=== PATIENT | male | born 1970 | race Two or more races ===

== ENCOUNTER 2017-01-21 13:55 | Emergency (ER) | payer OTHER ==
--- NOTE | 2017-01-21 14:55 | EDPHY ---
H & P Time Seen by Provider: 01/21/17 14:27 HPI/ROS: CHIEF COMPLAINT: [foreign body sensation in left hand] HISTORY OF PRESENT ILLNESS: 46-year-old male presents with foreign body sensation in his left thenar eminence. One week ago, he was working with a wood board and a splinter became lodged in his left hand. He pulled it out. He still has a foreign body sensation in the left hand. ROS: No numbness, weakness, excessive bleeding, syncopal episode, other injury. Past Medical/Surgical History: Hypertension Smoking Status: Never smoked Physical Exam: Alert and oriented, pleasant Extremities: left hand-there is a scabbed-over wound approximately 1 cm in length the left thenar eminence, no foreign body palpable Skin: No erythema or warmth Neuro: Motor and sensory intact Vascular: Capillary refill brisk distally. Constitutional: Initial Vital Signs Temperature (C) 37.2 C 01/21/17 14:11 Heart Rate 82 01/21/17 14:11 Respiratory Rate 18 01/21/17 14:11 Blood Pressure 151/104 H 01/21/17 14:11 O2 Sat (%) 97 01/21/17 14:11 O2 Delivery Mode Room Air Allergies/Adverse Reactions: No Known Allergies Allergy (Verified 01/21/17 14:12) Home Medications: Medication Instructions Recorded Bp Med 01/21/17 Medical Decision Making - Diagnostics Imaging Results: X-rays independently reviewed by me reveal no foreign body. ED Course/Re-evaluation: 1% lidocaine locally. The wound was scrubbed by me. I probed the wound using splinter forceps. No foreign body palpable or visible. The wound was cleansed. Bacitracin and a Band-Aid placed. He will follow up with Hand surgery if he continues to have a foreign body sensation. Departure - Departure Disposition: Home, Routine, Self-Care Clinical Impression: Foreign body of left hand Qualifiers: Encounter type: initial encounter Qualified Code(s): S60.552A - Superficial foreign body of left hand, initial encounter Condition: Good Instructions: Soft Tissue Foreign Body (ED) Additional Instructions: Clean the wound with soap and water 3 times daily. Referrals: Kendrick Daly MD [Primary Care Provider] - As per Instructions Gerson Morillo MD [Medical Doctor] - As per Instructions (Call to make an appointment with Dr. Morillo.)
[2017-01-21 15:06] VITALS: BP 158/109; PULSE 88; RESP 16; TEMP 98.6; O2SAT 96
== END 2017-01-21 15:05 | disposition home or self-care (01) ==
LOC: CED 13:55
DX: S60.552A Superficial foreign body of left hand, initial encounter (principal); I10 Essential (primary) hypertension; W45.8XXA Other foreign body or object entering through skin, initial encounter; Y92.69 Other specified industrial and construction area as the place of occurrence of the external cause; Y99.0 Civilian activity done for income or pay; Y93.89 Activity, other specified
CPT/HCPCS: 73130-PO